=== PATIENT | female | born 1990 | race African-American/Black ===

== ENCOUNTER 2017-11-12 23:15 | Emergency (ER) | payer OTHER ==
[~2017-11-12] VITALS: Ht 170.2 cm; Wt 127.9 kg
[2017-11-13] MEDS ORDERED: FAMOTIDINE 20 MG/2 ML VIAL IV STA (00:05)
[2017-11-13] MEDS ORDERED: DICYCLOMINE HCL 20 MG TAB PO ONE (00:15)
[2017-11-13] MEDS ORDERED: SODIUM CHLORIDE 0.9% 1000ML 1,000 ML IV SCH (00:15)
== END 2017-11-13 01:38 | disposition home or self-care (01) ==
LOC: FSED 23:15
DX: R10.9 Unspecified abdominal pain (principal); R11.2 Nausea with vomiting, unspecified; R19.7 Diarrhea, unspecified; A08.4 Viral intestinal infection, unspecified; D64.9 Anemia, unspecified; E28.2 Polycystic ovarian syndrome
CPT/HCPCS: 80048; 80076; 81003; 81025; 85025; 99284

== ENCOUNTER 2018-02-02 23:44 | Emergency (ER) | payer OTHER ==
[~2018-02-02] VITALS: Ht 170.2 cm; Wt 127.9 kg
--- OUTSIDE RECORDS SUMMARY | 2018-02-02 23:47 | XMS REPORT | Clinical Summary ---
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 Disp. Refills Start End Date Status Date metFORMIN (GLUCOPHAGE) Take 500 mg by mouth 2 Active 500 mg tablet (two) times a day with meals. ferrous sulfate 325 (65 Take 325 mg by mouth Active FE) MG tablet daily with breakfast. ibuprofen (ADVIL,MOTRIN) Take 1 tablet (600 mg 40 tablet 0 02/04/20 03/05/20 600 MG tablet total) by mouth every 6 17 17 (six) hours as needed for mild pain for up to 30 days. Active Problems Problem Noted Date Tonsillitis 02/03/2017 Dizziness 02/03/2017 Iron deficiency anemia due to chronic blood loss 02/03/2017 Encounters Date Type Specialty Care Team Description 02/03/2017 Emergency Emergency Medicine Alexandr Neal MD Tonsillitis (Primary Dx); Dizziness; Iron deficiency anemia due to chronic blood loss after 02/01/2017 Social History Tobacco Use Types Packs/Day Years Used Date Never Smoker Alcohol Use Drinks/Week oz/Week Comments Yes occ. Sex Assigned at Date Recorded Not on file Last Filed Vital Signs Vital Sign Reading Time Taken Blood Pressure 145/79 02/03/2017 3:50 PM CDT Pulse 75 02/03/2017 3:50 PM CDT Temperature 35.9 C (96.7 F) 02/03/2017 1:00 PM CDT Respiratory Rate 18 02/03/2017 3:50 PM CDT Oxygen Saturation 100% 02/03/2017 3:50 PM CDT Inhaled Oxygen - - Concentration Weight - - Height 170.2 cm (5' 7") 02/03/2017 1:01 PM CDT Body Mass Index - - Plan of Treatment Health Maintenance Due Date Last Done Comments CERVICAL CANCER SCREENING 12/19/2011 INFLUENZA VACCINE 11/15/2017 12/27/2016, 01/20/2015 Procedures Procedure Name Priority Date/Time Associated Diagnosis Comments ECG ED PRELIMINARY Routine 02/03/2017 Results for this INTERPRETATION 7:55 PM CDT procedure are in the results section. HCG QUALITATIVE, URINE STAT 02/03/2017 Results for this SCREEN 2:40 PM CDT procedure are in the results section. URINALYSIS STAT 02/03/2017 Results for this 2:40 PM CDT procedure are in the results section. ZZESTIMATED GFR STAT 02/03/2017 Results for this 2:20 PM CDT procedure are in the results section. COMPREHENSIVE METABOLIC STAT 02/03/2017 Results for this PANEL 2:20 PM CDT procedure are in the results section. TROPONIN, I-STAT STAT 02/03/2017 Results for this 2:20 PM CDT procedure are in the results section. CREATINE KINASE, TOTAL STAT 02/03/2017 Results for this (CPK) 2:20 PM CDT procedure are in the results section. HC COMPLETE BLD COUNT STAT 02/03/2017 Results for this W/AUTO DIFF 2:20 PM CDT procedure are in the results section. XR CHEST 2 VW STAT 02/03/2017 Results for this 1:47 PM CDT procedure are in the results section. ECG 12-LEAD Routine 02/03/2017 Results for this 1:17 PM CDT procedure are in the results section. after 02/01/2017 Results * ECG ED Preliminary Interpretation - NOT AN ORDER (02/03/2017 7:55 PM) Narrative Performed At Alexandr Neal MD 02/03/20177:55 PM ECG ED Preliminary Interpretation - Not an Order Performed by: ALEXANDR ENAL Authorized by: ALEXANDR NEAL ECG reviewed by ED Physician in the absence of a tanker serviceman: yes Previous ECG: Previous ECG:Unavailable Interpretation: Interpretation: normal Rate: ECG rate:70 ECG rate assessment: normal Rhythm: Rhythm: sinus rhythm QRS: QRS axis:Normal Conduction: Conduction: normal ST segments: ST segments:Normal T waves: T waves: normal * Urinalysis (02/03/2017 2:40 PM) Glucose, UA Negative Negative [facility] Bilirubin, UA Negative Negative [facility] Ketones, UA Negative Negative [facility] Specific gravity, UA 1.020 1.001 - 1.035 [facility] Blood, UA Trace (A) Negative [facility] pH, UA 7.0 5.0 - 8.5 [facility] Protein, UA Negative Negative [facility] Urobilinogen, UA <2.0 <2.0 [facility] Nitrite, UA Negative Negative [facility] Leukocyte esterase, UA Negative Negative [facility] Color, UA Yellow [facility] Appearance, UA Clear [facility] Specimen Urine Performing Organization Address City/State/[place] [address] [facility] * hCG qualitative, urine screen (02/03/2017 2:40 PM) hCG qualitative, urine NegativeComment: Sensitivity DEPARTMENT OF of HCG test: 25 mIU/mL [facility] Specimen Urine Performing Organization Address City/[facility] [place] [address] PATHOLOG[facility] AND [facility] * Estimated GFR (02/03/2017 2:20 PM) GFR Non Af Amer 76 mL/min/1.73 m2 [facility] GFR Af Amer >90 mL/min/1.73 m2 DEPARTMENT OF Comment: PATHOLOGY AND Chronic kidney disease: <60 [facility], mL/min/1.73m2 [facility] Kidney failure: <15 [facility] mL/min/1.73m2 The estimated GFR is calculated from the IDMS-traceable Modification of Diet in Renal Disease Equation. The accuracy of the calculation is poor when the creatinine is normal. Calculated values >90 mL/min/1.73m2 are not reported. This equation has not been validated in children (<18 years), women, the elderly (>70 years), or ethnic groups other than Caucasians and Americans. Specimen Plasma specimen Performing Organization Address City/[facility] [place] [address] [facility] * Troponin, I-Stat (02/03/2017 2:20 PM) Troponin, I-Stat 0.00 0.00 - 0.08 ng/mL DEPARTMENT OF Comment: PATHOLOGY AND 0.09 - 1.49 [facility]IC [facility]ICINE, ng/[facility] indicate increased risk of [facility] acute coronary syndrome. >=1.5 ng/ml Consistent with acute myocardial infarction. The diagnostic value of a single normal or non-diagnostic result is questionable.Serial samples at 2-6 hour intervals are required to rule out acute myocardial injury. Specimen Plasma specimen Performing Organization Address City/[facility] [place] [address] [facility] * CBC with platelet and differential (02/03/2017 2:20 PM) WBC 8.24 4.50 - 11.00 k/uL [facility] RBC 3.64 (L) 4.20 - 5.50 m/uL [facility] HGB 9.3 (L) 12.0 - 16.0 g/dL [facility] HCT 30.0 (L) 37.0 - 47.0 % [facility] MCV 82.4 82.0 - 100.0 fL [facility] MCH 25.5 (L) 27.0 - 34.0 pg [facility] MCHC 31.0 31.0 - 37.0 g/dL [facility] RDW - SD 41.0 37.0 - 55.0 fL [facility] MPV 11.1 8.8 - 13.2 fL [facility] Platelet count 325 150 - 400 k/uL [facility] Neutrophils 57.9 39.0 - 69.0 % [facility] Lymphocytes 31.3 25.0 - 45.0 % [facility] Monocytes 7.6 0.0 - 10.0 % [facility] Eosinophils 3.0 0.0 - 5.0 % [facility] Basophils 0.2 0.0 - 1.0 % [facility] Specimen Blood Performing Organization Address City/[facility] [place] [address] PATHOLOG[facility] AND [facility] * Creatine kinase, total (CPK) (02/03/2017 2:20 PM) Creatine kinase 87 30 - 190 U/L [facility] Specimen Plasma specimen Performing Organization Address City/State/[place] [address] [facility] * Comprehensive metabolic panel (02/03/2017 2:20 PM) Sodium 137 128 - 145 mEq/L [facility] Potassium 4.1 3.6 - 5.1 mEq/L [facility] CO2 29 18 - 33 mEq/L [facility] Chloride 104 98 - 108 mEq/L [facility] Glucose 87 73 - 118 mg/dL [facility] Calcium 8.6 8.0 - 10.3 mg/dL [facility] BUN 7 7 - 22 mg/dL [facility] Creatinine 0.9 0.6 - 1.2 mg/dL [facility] Alkaline phosphatase 52 42 - 141 U/L DEPARTMENT OF PATHOLOGY AND GENOMIC MEDICINE, [facility] ALT 14 10 - 47 U/L [facility] AST 17 11 - 38 U/L [facility] Total bilirubin 0.4 0.2 - 1.6 mg/dL [facility] Albumin 3.4 3.3 - 5.5 g/dL [facility] Protein 7.4 6.4 - 8.1 g/dL [facility] Anion gap 4 (L) 7 - 15 mEq/L DEPARTMENT OF Comment: PATHOLOGY AND Starting from July GENOMIC MEDICINE, , anion gap calculation [facility] potassium. Please note the change. A/G ratio 0.8 0.7 - 3.8 [facility] Specimen Plasma specimen Performing Organization Address City/State/Zipcode Phone Number DEPARTMENT OF [address] [place] [id number] [facility] * XR Chest 2 Vw (02/03/2017 1:47 PM) Narrative Performed At EXAMINATION:XR CHEST 2 VW [facility] CLINICAL HISTORY:Chest Pain COMPARISON:None IMPRESSION: The lungs are clear. The mediastinal contours and cardiac silhouette are unremarkable. The bones are unremarkable. [facility]-[id number] Procedure Note Interface, Radiology Results Incoming - 02/03/2017 1:53 PM CDT EXAMINATION: XR CHEST 2 VW CLINICAL HISTORY: Chest Pain COMPARISON: None IMPRESSION: The lungs are clear. The mediastinal contours and cardiac silhouette are unremarkable. The bones are unremarkable. [facility]-[id number] Performing Organization Address City/[facility]/Zipcode Phone Number [facility] [address] [place] [address] * ECG 12 lead (02/03/2017 1:17 PM) Ventricular rate 70 [facility] Atrial rate 70 [facility] UT interval 170 [facility] QRSD interval 80 [facility] QT interval 398 [facility] QTC interval 429 [facility] P axis 1 -14 [facility] QRS axis 1 52 [facility] T wave axis 21 [facility] EKG impression Normal sinus rhythm-Normal [facility] ECG-- Performing Organization Address City/State/Zipcode Phone Number [facility] [address] [place] [address] after 02/01/2017 Insurance Payer Benefit Subscriber ID Type Phone Address Plan / Group [employer] OPEN xxxxxxxxxxx O ACCESS/NET WORK Guarantor Name Account Relation to Date of Phone Billing Address Type Patient MISTI ANDERSON Personal/F Self 1990 Home: [address] [facility] [place] [address]
[2018-02-03] MEDS ORDERED: ACETAMINOPHEN 325 MG TAB PO ONE (00:15)
--- NOTE | 2018-02-03 02:27 | Diagnostic Imaging Report ---
EXAM: Obstetric Pelvic Ultrasound INDICATION: Right lower quadrant pelvic pain with lightheadedness and nausea COMPARISON: None TECHNIQUE: Transabdominal and transvaginal evaluation of the pelvis was performed in the transverse and longitudinal planes. CLINICAL HISTORY: 27 years year old G 2 P 0 A 1; last menstrual period: 12/06/2017. Estimated due date on 09/12/2018 FINDINGS: Uterus Orientation: Normal Size: 10.2 x 6.4 x 15.8 cm, enlarged Mass: None Cervix: Normal Gestational Sac: Location: Intrauterine Average sac diameter: 2.32 cm Estimated sonographic GA: 6 weeks and 6 days Appearance: Normal in contour Subchorionic hemorrhage: None Yolk sac: Present Embryo/Fetus: [place] rump length: 1.3 cm Estimated sonographic GA: 7 weeks and 4 days Cardiac activity: 176 bpm Right ovary Size: 3.5 x 2 x 3.6 cm Mass/Cyst: Left ovary Not visualized. Cul-de-sac: No free fluid IMPRESSION: 1. Single, viable intrauterine with estimated gestational age of 7 weeks and 4 days by CRL. 2. No evidence of complications. Signed by: Dr. Naveen Ha M.D. on 02/03/2018 2:24 AM
[2018-02-03] MEDS ORDERED: POTASSIUM CHLORIDE 20 MEQ TAB CR PO STA (02:37)
== END 2018-02-03 02:45 | disposition home or self-care (01) ==
LOC: FSED 23:44
DX: R10.2 Pelvic and perineal pain (principal); E87.6 Hypokalemia; K52.9 Noninfective gastroenteritis and colitis, unspecified
CPT/HCPCS: 36415; 76817; 80053; 81003; 81025; 84702; 85025; 86900; 99284